=== PATIENT | male | born 1945 | race Caucasian/White ===

== ENCOUNTER → 2018-03-29 | Outpatient (CLI) | payer MEDICARE, OTHER ==
--- NOTE | 2018-03-29 12:36 | RADIOLOGY REPORT (SQ) ---
EXAM DESCRIPTION: MRI LT LOWER JOINT WITHOUT COMPLETED DATE/TIME: 03/29/2018 11:08 am REASON FOR STUDY: LEFT KNEE PAIN (M25.562) M25.562 PAIN IN LEFT KNEE COMPARISON: None. TECHNIQUE: Leftknee images acquired and stored on PACS. Multiplanar images include fat sensitive se quences as T1, water sensitive sequences as FST2 or STIR, cartilage sensitive sequences as FSPD, and gradient echo sequences. LIMITATIONS: Some of the sequences are limited by motion. This is up to moderate on the axial seque nce. FINDINGS: JOINT AND BURSAE: Moderate effusion. No large loose bodies. BONE CORTEX AND MARROW: No alteration of signal to suggest marrow replacement. No worrisome bone lesi ons. No occult fracture. ACL: Intact major fiber bundles. Mild degenerative signal suspected within. PCL: Intact. MCL: Intact. No periligamentous edema or fluid. LCL: Intact. No periligamentous edema or fluid. MEDIAL MENISCUS: Mildly complex tear posterior horn extends to the inferior articular surface. LATERAL MENISCUS: No tears. No abnormal signal. MEDIAL COMPARTMENT: Mild chondral thinning without focal defects. LATERAL COMPARTMENT: Mild chondral thinning without focal defects. PATELLA: Normal location. Relative preservation of patellar cartilage. EXTENSOR MECHANISM: Tendinosis in the quadriceps tendon. Patellar tendon looks generally normal. SOFT TISSUES: Trace Lund's cyst. Appropriate vascular flow voids. OTHER: No other significant finding. IMPRESSION: 1. Medial meniscus tear. 2. Other findings as above. TECHNICAL DOCUMENTATION: JOB ID: [id number] [employer]- All Rights Reserved Reading location - IP/workstation name: [email or web address]
== END ==
LOC: RAD 10:12
PROVIDERS: ATTEND Orthopaedic Surgery
DX: M25.562 Pain in left knee (principal); M25.462 Effusion, left knee; S83.242A Other tear of medial meniscus, current injury, left knee, initial encounter; X58.XXXA Exposure to other specified factors, initial encounter

== ENCOUNTER → 2018-12-27 | Outpatient (CLI) | payer MEDICARE, OTHER ==
--- NOTE | 2018-12-29 19:36 | RADIOLOGY REPORT (SQ) ---
EXAM DESCRIPTION: MRI RT UPPER JOINT WITHOUT COMPLETED DATE/TIME: 12/27/2018 4:47 pm REASON FOR STUDY: M25.511 PAIN IN RIGHT SHOULDER M25.511 PAIN IN RIGHT SHOULDER COMPARISON: None. TECHNIQUE: Right shoulder images acquired and stored on PACS. Multiplanar imaging to include fat sen sitive sequences such as T1, water sensitive sequences such as FST2/STIR, cartilage sensitive sequenc es such as FSPD/gradient-echo sequences. LIMITATIONS: None. FINDINGS: BONE MARROW AND CORTEX: No worrisome bone lesions or marrow replacement. No occult fractur es. JOINT OR BURSAL EFFUSION: No significant joint or bursal fluid. No suggestion of loose bodies. GLENO-HUMERAL ARTICULATION: Normal articulation. No subluxation. No cystic change. No osteophytes or cartilage loss. ACROMION AND AC JOINT: Type 1 acromion. Marked hypertrophic changes of the AC joint particularly of the distal clavicle. Question prior fracture. ROTATOR CUFF AND INTERVAL: Tendinopathy of the supraspinatus with an articular surface partial tear. infraspinatus and sub KRISTEN scapularis intact. No cuff muscle atrophy. No rotator interval tear. No rotator interval thickening to suggest adhesive capsulitis. LABRUM AND BICEPS LABRAL COMPLEX: Intact. No labral tear. Intra-articular long-head biceps tendon n ormal. Distal biceps in normal location in bicipital groove. REMAINDER OF LABRUM AND IGHL : No gross tear or paralabral cyst formation. Labral evaluation is less than optimal without joint distention. No thickening of IGHL to suggest adhesive capsulitis. PERIARTICULAR AND ADJACENT SOFT TISSUES: No masses or abnormal nodes. OTHER: No other significant finding. IMPRESSION: Tendinopathy and articular surface partial tear of the supraspinatus without cuff muscle atrophy. Marked hypertrophic changes of the AC joint, particularly the distal clavicle, possibly related to pr ior trauma. TECHNICAL DOCUMENTATION: JOB ID: [id number] [employer]- All Rights Reserved Reading location - IP/workstation name: [email or web address]
== END ==
LOC: RAD 15:43
PROVIDERS: ATTEND Orthopaedic Surgery
DX: M25.511 Pain in right shoulder (principal)

== ENCOUNTER → 2020-01-17 | Outpatient (CLI) | payer MEDICARE, OTHER ==
--- NOTE | 2020-01-17 17:59 | RADIOLOGY REPORT (SQ) ---
EXAM DESCRIPTION: MRI LUMBAR SPINE WITHOUT IMAGES COMPLETED DATE/TIME: 01/17/2020 11:24 am REASON FOR STUDY: M54.5 LOW BACK PAIN M54.5 LOW BACK PAIN. Lumbar spine and right hip pain. Pain radiates with tingling and numbness. Fell 3 weeks ago. History of skin surgery. Diabetes, hyperten rip. COMPARISON: Lumbar spine radiograph, 10/31/2015. TECHNIQUE: Sagittal and Axial imaging includes T1, T2, STIR and gradient echo sequences. Coronal T2/ HASTE imaging. LIMITATIONS: None. FINDINGS: VISUALIZED UPPER ABDOMEN: Limited evaluation. No acute or suspicious findings suggested. SEGMENTATION: No transitional anatomy. The lowest well-developed disc space is labeled L5-S1. ALIGNMENT: Anatomic. VERTEBRAE: Intact. No loss of vertebral body heights. Small marginal osteophytes with large osteoph ytes at the anterior endplates of L5 and S1. No suspicious bone lesions. BONE MARROW: Normal. No marrow replacement or reactive changes. DISC SIGNAL: Loss of intervertebral disc signal and height at multiple levels, consistent with chroni c degenerative disc disease. No significant disc bulges or herniations. Degenerative changes are de scribed below. POSTERIOR ELEMENTS: Generally intact. No pars defect evident. HARDWARE: None in the spine. CORD AND CONUS: Normal in size and signal intensity. Conus at the appropriate level. SOFT TISSUES: Exophytic left renal cortical cyst. Left parapelvic renal cysts. No hydronephrosis. Abdominal aorta has normal caliber. L1-L2: Loss of intervertebral disc signal and height. Tiny broad-based posterior disc bulge with no significant spinal canal stenosis. No significant neural foraminal stenosis. L2-L3: Loss of intervertebral disc signal and height. No disc bulge. No significant spinal canal st enosis. No neural foraminal stenosis. L3-L4: Loss of intervertebral disc signal and height. No disc bulge or herniation. No spinal canal stenosis. No significant neural foraminal stenosis. L4-L5: Loss of intervertebral disc signal and height. Asymmetric left-sided disc bulge with disc mat erial extending to the left neural foramen. There is mild facet arthropathy at this level. No signi ficant spinal canal stenosis. Moderate left neural foraminal stenosis. L5-S1: Loss of intervertebral disc signal and posterior disc height. Large bridging marginal osteoph ytes anteriorly. Small broad-based posterior disc bulge with no significant spinal canal stenosis. Disc material extends to the right and left neural foramen. There is moderate bilateral facet arthro gio and hypertrophy of the ligamentum flavum. Disc material and facet arthropathy contribute to mo derate left and severe right neural foraminal stenosis. LOWER THORACIC: Incompletely imaged. No stenosis seen. SACRUM: Visualized upper sacrum intact. OTHER: No other significant findings. IMPRESSION: 1. No acute abnormality of the lumbar spine. No spinal canal stenosis or cord compression. 2. Multilevel degenerative disc disease and spondylosis. 3. At L5-S1, there is a small broad-based posterior disc bulge extending to the right and left neural foramen, in combination with facet arthropathy contributing to severe right neural foraminal stenosi s at this level. TECHNICAL DOCUMENTATION: JOB ID: [id number] [employer]- All Rights Reserved Reading location - IP/workstation name: [email or web address]
== END ==
LOC: RAD 11:13
PROVIDERS: ATTEND Physician Assistant
DX: M51.37 Other intervertebral disc degeneration, lumbosacral region (principal); M47.817 Spondylosis without myelopathy or radiculopathy, lumbosacral region; M54.5 Low back pain
CPT/HCPCS: 72148